=== PATIENT | female | born 2000 | race Caucasian/White ===

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

== ENCOUNTER 2023-05-19 14:23 | Emergency (ER) | payer OTHER ==
[~2023-05-19] VITALS: Ht 154.9 cm; Wt 84.4 kg
[2023-05-19 14:52] VITALS: BP 135/71; PULSE 71; RESP 20; TEMP 97.8
[2023-05-19] MEDS ORDERED: IBUPROFEN 600 MG TAB PO ONE (15:45)
[2023-05-19] MEDS ORDERED: IBUP-2213 PO (16:05)
[2023-05-19] MEDS ORDERED: ACET-8905 PO (16:05)
[2023-05-19 16:25] VITALS: BP 122/70; PULSE 74; RESP 17; O2SAT 98
== END 2023-05-19 16:23 | disposition home or self-care (01) ==
LOC: MED 14:23
DX: S22.31XA Fracture of one rib, right side, initial encounter for closed fracture (principal); Z79.899 Other long term (current) drug therapy; V89.2XXA Person injured in unspecified motor-vehicle accident, traffic, initial encounter; Y93.89 Activity, other specified; Y92.89 Other specified places as the place of occurrence of the external cause; Y99.8 Other external cause status
CPT/HCPCS: 71101; 99283

== ENCOUNTER 2024-02-24 01:21 | Emergency (ER) | payer OTHER ==
[~2024-02-24] VITALS: Ht 154.9 cm; Wt 86.2 kg
[~2024-02-24 01:21] MED LIST: ACET-8905 PO; IBUP-2213 PO
[2024-02-24 01:35] VITALS: BP 117/69; PULSE 98; RESP 18; TEMP 98; O2SAT 99
[2024-02-24] MEDS: LIDOCAINE 2% 1000 MG/50 ML VIAL INJ ONE (04:25)
[2024-02-24 04:30] VITALS: BP 117/69; PULSE 98; RESP 18; TEMP 98; O2SAT 99
[2024-02-24] MEDS ORDERED: SULF-59 PO (04:44)
== END 2024-02-24 04:54 | disposition home or self-care (01) ==
LOC: MED 01:21
DX: N76.0 Acute vaginitis (principal); Z79.899 Other long term (current) drug therapy
CPT/HCPCS: 56405; 81002; 81025; 99284; J2001